=== PATIENT | male | born 1950 | race Caucasian/White ===

== ENCOUNTER → 2017-10-31 | Outpatient (CLI) | payer MEDICARE, BC ==
[~2017-10-31] MED LIST: AMLO5TAB2 PO; ASCO10004 PO; DEXL60CA2 PO; FIBER TABS PO; LISI40TA PO; MULT-516 PO; TADA5TAB2 PO
[2017-10-31 13:13] LABS: ALANINE AMINOTRANSFERASE 74 U/L (12-78); ALBUMIN 3.8 g/dL (3.4-5.0); ANION GAP 9 mmol/L (5-15); CALCIUM 8.8 mg/dL (8.5-10.1); CHLORIDE 110 mmol/L (98-107); CREATININE 0.82 mg/dL (0.7-1.3)
[2017-10-31 13:15] LABS: ALKALINE PHOSPHATASE 117 U/L (45-117); BILIRUBIN,TOTAL 1.3 mg/dL (0.2-1.0); TOTAL PROTEIN 8.2 g/dL (6.4-8.2)
== END ==
LOC: STAR 11:46
PROVIDERS: ATTEND Internal Medicine
DX: R94.31 Abnormal electrocardiogram [ECG] [EKG] (principal)
CPT/HCPCS: 36415; 80053; 93005

== ENCOUNTER 2017-11-04 05:47 | Day surgery (SDC) | payer MEDICARE, BC ==
[~2017-11-04] VITALS: Ht 182.9 cm; Wt 82.2 kg
[2017-11-04] MEDS ORDERED: LACTATED RINGERS 1,000 ML IV SCH (06:22)
[2017-11-04] MEDS ORDERED: ONDANSETRON ODT 8 MG ONE ×2 (07:10→07:49)
[2017-11-04] MEDS ORDERED: MIDAZOLAM 1 MG/ML, 2ML ONE (07:15)
[2017-11-04] MEDS ORDERED: FENTANYL PF 100 MCG/2ML ONE (07:15)
[2017-11-04] MEDS ORDERED: PROPOFOL 50 ML ONE (07:17)
[2017-11-04] MEDS ORDERED: OXYcodone 5 MG/5 ML ORAL.SOL UDC PO PRN (07:30)
[2017-11-04] MEDS ORDERED: FENTANYL PF 100 MCG/2ML IV PRN (07:30)
[2017-11-04] MEDS ORDERED: MORPHINE SULFATE 4 MG/ML, 1ML IVPush PRN (07:30)
[2017-11-04] MEDS ORDERED: MEPERIDINE/PF 25MG/0.5ML IVPush PRN (07:30)
[2017-11-04] MEDS ORDERED: ACETAMINOPHEN 325 MG TABLET PO PRN (07:30)
[2017-11-04] MEDS ORDERED: PROMETHAZINE 25 MG/ML, 1ML IV PRN (07:30)
[2017-11-04] MEDS ORDERED: LABETALOL 5MG/ML, 20ML IV PRN (07:30)
[2017-11-04] MEDS ORDERED: hydrALAzine 20 MG/ML, 1ML IV PRN (07:30)
[2017-11-04] MEDS ORDERED: KETAMINE 100 MG/ML, 5ML ONE (07:49)
[2017-11-04] MEDS ORDERED: LABETALOL 5MG/ML, 20ML ONE (07:49)
[2017-11-04] MEDS ORDERED: EPINEPHRINE SYRINGE 0.1 MG/ML, 10ML ONE (08:38)
== END 2017-11-04 10:02 ==
LOC: OUT 05:47
PROVIDERS: ATTEND Internal Medicine
DX: K86.9 Disease of pancreas, unspecified (principal); I10 Essential (primary) hypertension; N40.0 Benign prostatic hyperplasia without lower urinary tract symptoms; K21.9 Gastro-esophageal reflux disease without esophagitis; Z72.89 Other problems related to lifestyle; Z87.891 Personal history of nicotine dependence
CPT/HCPCS: 43242; J2250; J2704; J3010; J7120; Q0162

== ENCOUNTER 2019-07-29 09:36 | Day surgery (SDC) | payer MEDICARE, BC ==
[2019-07-27 10:57] LABS: ANION GAP 6 mmol/L (5-15); CALCIUM 9.1 mg/dL (8.5-10.1); CHLORIDE 110 mmol/L (98-107); CREATININE 1.15 mg/dL (0.7-1.3)
[~2019-07-29] VITALS: Ht 182.9 cm; Wt 81.3 kg
[~2019-07-29 09:36] MED LIST changes: +ACET325C6 PO; +AMLO-150 PO; -AMLO5TAB2 PO; +APIX5TAB PO; +B CO1TAB14 PO; +BIMA2.5D OP; +BRIM5DRO2 OP; +CALC625T23 PO; +CARV3.1212 PO; +CARV3.122 PO; +CYAN1TAB29 PO; +DIGO125T85 PO; +DORZ10DR27 OP; +FOLI-17 PO; +LISI-167 PO; +MAGN400T9 PO; +MULT-484 PO; +MULT-658 PO; +TAMS-11 PO; +THIA100T67 PO; +fiber
[2019-07-29] MEDS ORDERED: PROPOFOL 10 MG/ML, 20ML ONE (11:01)
== END 2019-07-29 12:48 | disposition home or self-care (01) ==
LOC: CACL 09:36
PROVIDERS: ATTEND Internal Medicine Cardiovascular Disease
DX: I48.91 Unspecified atrial fibrillation (principal); I47.1 Supraventricular tachycardia; K21.9 Gastro-esophageal reflux disease without esophagitis; I10 Essential (primary) hypertension
CPT/HCPCS: 36415; 80048; 92960; J2704